=== PATIENT | female | born 1975 | race Caucasian/White ===

== ENCOUNTER → 2016-05-07 13:32 | Outpatient (CLI) | payer MEDICAID ==
[2015-09-16 09:17] VITALS: BMI 39.5
[~2016-05-07 13:32] MED LIST: DIABETA5 MG PO; FARXIGA10 MG PO; GLUCOPHAGE1000 MG PO; HYDROCHLOROTHIA25 MG PO; HYDROCODONE-APA1 TAB PO; LANTUS SOL100 UNIT/1 SC; LEVAQUIN500 MG PO; LINZESS290 MCG PO; MILK OF MAGNESI30 ML PO; MIRALAX17 GM PO; OXYCODONE HCL5 MG PO; PHENERGAN25 M1 PO; PRILOSEC20 MG PO; VICTOZA0.6 MG/0.1 SQ; ZOFRAN ODT4 MG/UDTAB PO
== END | disposition home or self-care (01) ==
LOC: D.CT 13:32
DX: M25.511 Pain in right shoulder (principal); R10.9 Unspecified abdominal pain

== ENCOUNTER → 2016-06-05 15:09 | Outpatient (CLI) | payer MEDICAID ==
[2015-09-16 09:17] VITALS: BMI 39.5
[2016-06-05 16:23] LABS: BASOPHILS 0.2 % (0.0-2.0); EOSINOPHILS 2.2 % (0-7); HEMATOCRIT 40.6 % (36.0-48.0); HEMOGLOBIN 13.3 g/dL (12-16); IMMATURE GRANULOCYTES 0.1 % (0-5); LYMPHOCYTES 27.7 % (15-50); MCH 29.6 pg (26.0-34.0); MCHC 32.8 g/dL (31.0-37.0); MCV 90.4 fL (80.0-100.0); MEAN PLATELET VOLUME 10.8 fL (7.4-10.4); MONOCYTES 4.9 % (2-11); NEUTROPHILS 64.9 % (40-80); PLATELET COUNT 251 10x3/uL (130-400); RBC 4.49 10x6/uL (4.00-5.40); RDW 13.1 % (11.5-14.5); WBC 8.6 10x3/uL (4.8-10.8)
[2016-06-05 16:57] LABS: T4 THYROXIN - FREE 1.29 ng/dL (0.76-1.46); THYROID STIMULATING HORMONE 1.17 uIU/mL (0.36-3.74)
== END | disposition home or self-care (01) ==
LOC: D.LAB 15:09
PROVIDERS: Internal Medicine Gastroenterology
DX: K21.0 Gastro-esophageal reflux disease with esophagitis (principal); K92.2 Gastrointestinal hemorrhage, unspecified; R10.11 Right upper quadrant pain; R11.2 Nausea with vomiting, unspecified; R12 Heartburn; R63.5 Abnormal weight gain; K59.00 Constipation, unspecified; N83.209 Unspecified ovarian cyst, unspecified side

== ENCOUNTER → 2016-06-09 07:33 | Outpatient (CLI) | payer MEDICAID ==
[2015-09-16 09:17] VITALS: BMI 39.5
--- NOTE | 2016-06-24 08:22 | EMG ---
PATIENT:DENISSE IRBY DATE OF SERVICE: 06/09/16 MEDICAL RECORD: [id number] DATE OF : 79 LOCATION: [facility] ADMISSION DATE: REFERRING PHYSICIAN: JEFF URBINA MD INTERPRETING PHYSICIAN: CANDACE SANTOYO MD DATE OF SERVICE: 06/09/2016 Electromyographic Report REFERRED BY: Dr. Urbina as an outpatient. DATE OF EXAMINATION: 06/09/2016 ELECTROMYOGRAPHIC DATA: Electromyographic examination is limited to the right upper extremity. In the right upper extremity, right median motor stimulation elicits a compound motor action potential with a distal latency of 5.2 milliseconds, peak amplitude of 4 millivolts, and calculated conduction velocity of 57 meters per second. Right ulnar motor stimulation elicits a compound motor action potential with a distal latency of 2.9 milliseconds, peak amplitude of 7 millivolts, and calculated conduction velocity of 60 meters per second. Right ulnar motor stimulation across the elbow fails to elicit evidence of conduction block at this level. Antidromic right median sensory stimulation elicits no reliable response. Antidromic right ulnar sensory stimulation elicits a response with a distal latency of 3.6 milliseconds, amplitude of 4 microvolts and calculated conduction velocity of 64 meters per second. The right median F wave is not reliably reproduced. Needle electrode examination is limited to the right upper extremity as well. Muscles interrogated include the abductor pollicis brevis, first dorsal interosseous, abductor digiti minimi, pronator teres, biceps brachii, triceps and deltoid. There is no abnormality of insertional activity and no abnormal spontaneous activity is seen in all muscles interrogated. Motor unit potential morphology and the pattern of motor unit potential firing and recruitment is normal in all muscles sampled. 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 There is no electrical evidence of a superimposed cervical radiculopathy or other lesion of the lower motor neuron in the right upper extremity at this time. There is no evidence of active denervation. TRANSINT:[id number] Voice Confirmation ID: [id number] DOCUMENT ID: [id number] CANDACE SANTOYO MD at 0822 CC: [id number] DICTATION DATE: 06/09/16 0834 [employer]: 06/09/16 2141 DEP CLI 06/09/[address] [facility] [address] [facility] [place] [address]
== END | disposition home or self-care (01) ==
LOC: D.CN 07:33
DX: R20.9 Unspecified disturbances of skin sensation (principal)

== ENCOUNTER 2016-07-10 06:50 | Day surgery (SDC) | payer MEDICAID ==
[2016-07-08 10:20] LABS: HEMATOCRIT 39.4 % (36.0-48.0); MCH 29.7 pg (26.0-34.0); MCV 90.2 fL (80.0-100.0); MEAN PLATELET VOLUME 10.6 fL (7.4-10.4); RBC 4.37 10x6/uL (4.00-5.40); RDW 13.5 % (11.5-14.5); WBC 7.3 10x3/uL (4.8-10.8)
[2016-07-08 10:26] LABS: CALC OSMOLALITY 273 mosm/kg (275-300); CALCIUM 9.3 mg/dL (8.5-10.1); CARBON DIOXIDE 27.7 mmol/L (21.0-32.0); CHLORIDE - SERUM 103 mmol/L (98-107); CREATININE - SERUM 0.5 mg/dL (0.6-1.3); POTASSIUM - SERUM 4.1 mmol/L (3.5-5.1); SODIUM 138 mmol/L (136-145); UREA NITROGEN 7 mg/dL (7-18); eGFR NON AFRICAN AMERICAN > 90 mL/min (90-120)
[2016-07-08 10:34] LABS: GLUCOSE 99 mg/dL (74-106)
[~2016-07-10] VITALS: Ht 158.8 cm; Wt 101.2 kg
[~2016-07-10 06:50] MED LIST changes: -HYDROCODONE-APA1 TAB PO
[2016-07-10 07:28] VITALS: BP 144/88; Ht 158.8 cm; Wt 101.2 kg
[2016-07-10] MEDS ORDERED: HYDROCODONE-APA1 TAB PO (10:22)
--- NOTE | 2016-07-10 13:46 | NUR ---
1200 IV DC WITH CATHER TIP INTACT
--- NOTE | 2016-07-10 13:51 | NUR ---
1250 FAMILY HERE PT DC HOME
--- NOTE | 2016-07-14 10:28 | OP ---
PATIENT NAME: DENISSE IRBY MEDICAL RECORD: [id number] :79 LOCATION:[facility] ADMISSION DATE: SURGEON: AAKASH SHAVER MD DATE OF OPERATION: 07/10/2016 PREOPERATIVE DIAGNOSIS: Right carpal tunnel syndrome. POSTOPERATIVE DIAGNOSIS: Right carpal tunnel syndrome. PROCEDURE PERFORMED: Right carpal tunnel release. SURGEON: Jamaal Shaver MD. ANESTHESIA: General. TOURNIQUET: No tourniquet was used. CONDITION: She tolerated the procedure well, was transferred to recovery room in stable condition at the termination of the procedure. INDICATIONS: This is a pleasant 41-year-old female who has been having significant numbness and tingling in the median nerve distribution. This has been getting progressively worse. We discussed the options with her. She wanted to go ahead and have the surgical release. We discussed risks, benefits, and alternatives including blood loss, scar, pain, continuing numbness and tingling, need for further procedure. She understood and wished to proceed. OPERATIVE REPORT: The patient was taken to the operating room and placed in supine position. General anesthesia was obtained. The right hand was confirmed to be the correct hand. It was prepped and draped in normal fashion. Once this was accomplished, I flexed her ring finger down, made a kendrick on the radial side of the ring finger then cut a small incision down through the skin with a knife then placed a hemostat below the transverse carpal tunnel ligament. I then transected the ligament down onto the hemostat. This was done carefully watching for any branches, in which none were visualized. Once this was accomplished, I then assured that the ligament was freed up both up, under the wrist and distally. I inspected the nerve noting it to be intact. I then copiously irrigated. I then closed with 2-0 Vicryl, then 3-0 Prolene. She was placed in a volar splint, awakened and transferred to the recovery room in stable condition, having tolerated the procedure well. TRANSINT:[id number] Voice Confirmation ID: [id number] DOCUMENT ID: [id number] AAKASH SHAVER MD at 1028 CC: [id number] DICTATION DATE: 07/10/16 1039 MARK[employer] PRESIDENT: 07/10/16 1913 [facility] 07/10/16 [facility] [address] [place] [address]
== END 2016-07-10 12:50 | disposition home or self-care (01) ==
LOC: D.OPS 06:50 → D.PAN 08:45 → D.OPS 08:45 → D.PAN 10:30 → D.OPS 10:30
PROVIDERS: Anesthesiology
DX: G56.01 Carpal tunnel syndrome, right upper limb (principal); K21.9 Gastro-esophageal reflux disease without esophagitis; E11.9 Type 2 diabetes mellitus without complications